=== PATIENT | female | born 1960 | race Caucasian/White ===

== ENCOUNTER → 2016-03-14 | Outpatient (REF) | payer OTHER | LOC: M LAB REF 16:27 | PROVIDERS: ATTEND Nurse Practitioner Adult Health | DX: R50.9 Fever, unspecified (principal) ==

== ENCOUNTER 2016-06-02 13:04 | Emergency (ER) | payer OTHER ==
[~2016-06-02] VITALS: Ht 172.7 cm; Wt 90.7 kg
[2016-06-02] MEDS ORDERED: HYDR12.55 (13:13)
[2016-06-02] MEDS ORDERED: CITA20TA4 (13:13)
[2016-06-02] MEDS ORDERED: ALBU83IN (13:13)
[2016-06-02] MEDS ORDERED: VITA50003 (13:13)
[2016-06-02] MEDS ORDERED: IBUP600T26 PO (13:13)
[2016-06-02] MEDS ORDERED: LISI-542 (13:13)
[2016-06-02] MEDS ORDERED: TYLE325T5 PO (13:13)
[2016-06-02] MEDS ORDERED: KETOROLAC 30 MG/ML VIAL (J1885) IV ONE (15:30)
[2016-06-02] MEDS ORDERED: NS 1,000 ML IV ONE (15:30)
[2016-06-02 16:12] LABS: ANION GAP 7 MEQ/L (8-16); BLOOD UREA NITROGEN 18 MG/DL (7-18); CALCIUM LEVEL 9.3 MG/DL (8.5-10.1); CARBON DIOXIDE LEVEL 28 MEQ/L (21-32); CHLORIDE LEVEL 104 MEQ/L (98-107); CREATININE FOR GFR 0.57 MG/DL (0.55-1.02); GLOMERULAR FILTRATION RATE > 60.0 (>51); GLUCOSE, FASTING 93 MG/DL (70-105); POTASSIUM SERUM 3.8 MEQ/L (3.5-5.1); SODIUM LEVEL 139 MEQ/L (136-145)
[2016-06-02 16:29] LABS: MEAN CORPUSCULAR HEMOGLOBIN 30.8 pg (27.0-33.0); MEAN CORPUSCULAR HGB CONC 34.4 g/dl (32.0-36.5); MEAN CORPUSCULAR VOLUME 89.5 fl (80.0-96.0); PLATELET COUNT, AUTOMATED 194 k/mm3 (150-450); RED CELL DISTRIBUTION WIDTH 12.6 % (11.5-14.5); WHITE BLOOD COUNT 8.1 K/mm3 (4.0-10.0)
[2016-06-02 16:49] LABS: BASOPHILS 2 % (0-4); EOSINOPHILS 2 % (0-5)
--- NOTE | 2016-06-02 18:20 | REPUSA ---
CLINICAL HISTORY: Abdominal pain. TECHNIQUE: Multiple axial, sagittal and coronal CT images were obtained through the abdomen and pelvi s without administration of oral or IV contrast material. COMMENTS: The liver is of uniform decreased attenuation without mass or defect compatible fatty infiltration. T here is no intra or extrahepatic biliary ductal dilatation. The spleen is normal. The gallbladder is within normal limits. The pancreas is of normal contour and attenuation characteristics. There is no evidence of adrenal mass. The kidneys are normal in size, shape and configuration. 2 nonobstructing calculi are noted in the l ower pole of the right kidney largest measures 5 mm. Nonobstructing calculi noted in the lower pole of left kidney, largest measures 5 mm. There is no hydroureter or hydronephrosis. There is no evidence for appendicitis. There is no bowel wall thickening. No evidence for small or la rge bowel obstruction. There is no evidence of abdominal ascites or lymphadenopathy. There is no evidence of intrinsic or extrinsic bladder mass. There is no pelvic ascites or lymphadeno romulo. The uterus and ovaries are unremarkable. Images of the lung bases show no evidence of pleural or parenchymal mass. There are no pleural effusi ons. The bony structures are free of lytic or blastic lesions. Multilevel degenerative changes are seen in volving the thoracolumbar spine. Scattered calcifications are seen involving the aorta and major branches compatible with atherosclero sis. IMPRESSION: Bilateral nonobstructing renal calculi. Fatty liver. No acute abdominal pelvic pathology. Thank you for your kind referral of this patient.
[2016-06-02] MEDS ORDERED: ROBA500T PO (18:54)
[2016-06-02] MEDS ORDERED: NAPR500T2 PO (18:54)
[2016-06-02 18:57] VITALS: BP 148/69
== END 2016-06-02 19:02 | disposition home or self-care (01) ==
LOC: M ED 15:09
DX: M54.5 Low back pain (principal); K76.0 Fatty (change of) liver, not elsewhere classified; E83.59 Other disorders of calcium metabolism; N29 Other disorders of kidney and ureter in diseases classified elsewhere; Z88.1 Allergy status to other antibiotic agents; Z88.0 Allergy status to penicillin; Z79.899 Other long term (current) drug therapy; Z87.442 Personal history of urinary calculi
CPT/HCPCS: 74176; 80048; 81001; 85025; 87086; 96374; 99282; J1885

== ENCOUNTER 2018-03-21 02:20 | Emergency (ER) | payer OTHER ==
[~2018-03-21] VITALS: Ht 175.3 cm; Wt 86.4 kg
[~2018-03-21 02:20] MED LIST: ALBU83IN; CITA20TA4; HYDR12.55; IBUP-1022 PO; LISI-542; NAPR-885 PO; ROBA500T PO; TYLE325T5 PO; VITA50005
[2018-03-21 02:52] LABS: BASO # 0.1 10^3/uL (0.0-0.2); BASO % 0.7 % (0.0-1.0); EOS # 0.2 10^3/uL (0.0-0.50); EOS % 1.9 % (0.0-3.0); HEMATOCRIT 43.2 % (36.0-47.0); HEMOGLOBIN 15.4 g/dl (12.0-15.5); LYMPH # 1.4 10^3/uL (1.5-4.5); LYMPH % 16.3 % (24.0-44.0); MEAN CORPUSCULAR HEMOGLOBIN 31.6 pg (27.0-33.0); MEAN CORPUSCULAR HGB CONC 35.6 g/dl (32.0-36.5); MEAN CORPUSCULAR VOLUME 88.5 fl (80.0-96.0); MONO # 0.9 10^3/uL (0.0-0.8); MONO % 9.8 % (0.0-5.0); NEUTROPHILS # 6.2 10^3/uL (1.8-7.7); PLATELET COUNT, AUTOMATED 216 10^3/uL (150-450); RED BLOOD COUNT 4.88 10^6/uL (4.00-5.40); WHITE BLOOD COUNT 8.8 10^3/uL (4.0-10.0)
[2018-03-21] MEDS ORDERED: NS 1,000 ML IV ONE (03:00)
[2018-03-21] MEDS ORDERED: KETOROLAC 30 MG/ML VIAL (J1885) IV ONE (03:00)
[2018-03-21] MEDS ORDERED: ONDANSETRON 4MG/2ML VIAL (J2405) IV ONE (03:00)
[2018-03-21 03:23] LABS: ALT/SGPT 23 U/L (12-78); BILIRUBIN,DIRECT 0.1 MG/DL (0.0-0.2); BILIRUBIN,TOTAL 0.4 MG/DL (0.2-1.0); BLOOD UREA NITROGEN 26 MG/DL (7-18); CALCIUM LEVEL 8.9 MG/DL (8.5-10.1); CARBON DIOXIDE LEVEL 26 MEQ/L (21-32); CHLORIDE LEVEL 104 MEQ/L (98-107); CREATININE FOR GFR 0.63 MG/DL (0.55-1.30); GLOMERULAR FILTRATION RATE > 60.0 (>51); GLUCOSE, FASTING 126 MG/DL (70-100); LIPASE 123 U/L (73-393); POTASSIUM SERUM 4.1 MEQ/L (3.5-5.1); SODIUM LEVEL 140 MEQ/L (136-145); TOTAL PROTEIN 6.7 GM/DL (6.4-8.2)
--- NOTE | 2018-03-21 04:04 | REPVR ---
EXAM: CT Abdomen and Pelvis Without Contrast EXAM DATE/TIME: 03/21/2018 2:55 AM CLINICAL HISTORY: 57 years old, female; Pain; Abdominal pain; Flank; Left; Additional info: L flank pain TECHNIQUE: Axial computed tomography images of the abdomen and pelvis without contrast. All CT scans at this facility use at least one of these dose optimization techniques: automated exposure control; mA and/or kV adjustment per patient size (includes targeted exams where dose is matched to clinical indication); or iterative reconstruction. Coronal and sagittal reformatted images were created and reviewed. COMPARISON: CT ABD PELVIS W/O CONTRAST 06/02/2016 5:10 PM FINDINGS: Lower thorax: Small 4 mm nodule in the lateral right costophrenic sulcus which is unchanged from the prior study. ABDOMEN: Liver: Low attenuation focus in the hepatic tip measuring 15 mm which is new since the prior study. Gallbladder and bile ducts: Normal. No calcified stones. No ductal dilation. Pancreas: Normal. No ductal dilation. Spleen: Normal. No splenomegaly. Adrenals: Normal. No mass. Kidneys and ureters: Nonobstructing bilateral renal calculi. Mild left perinephric induration and mild left hydronephrosis which extends to a large left UPJ calculus which measures 10 x 5 x 9 cm. There is minimal left hydroureter and periureteral edema which extends to the left UVJ. Stomach and bowel: Mild stool throughout much of the colon. Slight wall thickening of the left colon from the splenic flexure to the rectum. Appendix: No evidence of appendicitis. PELVIS: Bladder: Unremarkable as visualized. Reproductive: Unremarkable as visualized. ABDOMEN and PELVIS: Intraperitoneal space: Normal. No free air. No significant fluid collection. Bones/joints: Bilateral spondylolysis at L5 mild anterior listhesis. Slight anterior wedge configuration of L1 which is unchanged from prior study. Soft tissues: Unremarkable. Vasculature: Normal. No abdominal aortic aneurysm. Lymph nodes: Normal. No enlarged lymph nodes. IMPRESSION: 1. Left UPJ calculus measuring 10 x 5 x 9 mm with moderate secondary obstructive uropathy. There is additional minimal left hydroureter with periureteral edema which extends to the left UVJ. No distal calculus is noted. A recently passed stone is not excluded. 2. Nonobstructing bilateral renal calculi. 3. 4 mm nodule in the lateral right costophrenic sulcus which is unchanged from 06/02/2016. No followup is needed. 4. Bilateral spondylolysis of L5 with mild anterolisthesis. 5. Low attenuation area in the hepatic tip measuring 15 mm which is new since the prior study. Followup is suggested. 6. Question of minimal nonspecific distal or left colitis. Electronically signed by: Marcos Mascorro On 03/21/2018 04:04:10 AM
[2018-03-21] MEDS ORDERED: PERC5TAB12 PO (06:19)
[2018-03-21] MEDS ORDERED: FLOM0.4C39 PO (06:20)
[2018-03-21 06:26] VITALS: BP 136/70
--- NOTE | 2018-03-23 11:57 | ED PDOC ---
Post-Departure Follow-Up [facility] faxed formal report of ct abd/p for fu Zhanna Dia MD Mar 23, 2018 11:57
== END 2018-03-21 06:40 | disposition home or self-care (01) ==
LOC: M ED 02:20
DX: N20.1 Calculus of ureter (principal); N13.4 Hydroureter; Z87.442 Personal history of urinary calculi; Z87.42 Personal history of other diseases of the female genital tract; Z98.890 Other specified postprocedural states; Z88.0 Allergy status to penicillin; Z88.8 Allergy status to other drugs, medicaments and biological substances
CPT/HCPCS: 74176; 80048; 80076; 81001; 83690; 85025; 93041; 96374; 96375; 99285; J1885; J2405

== ENCOUNTER → 2018-06-22 | Outpatient (CLI) | payer OTHER ==
[~2018-06-22] MED LIST changes: -CITA20TA4; +CITA20TA6; +FLOM0.4C39 PO; +PERC5TAB12 PO
--- NOTE | 2018-06-22 14:49 | REP ---
Unilateral left ribs PA chest and views History: Contusion The lungs are clear. The heart is normal in size. The pulmonary vasculature is normal in appearance. The bony structure is intact. Impression: No acute disease. Electronically Signed by Saman Edwards MD 06/22/2018 02:40 P
== END ==
LOC: M WUC 14:17
PROVIDERS: ATTEND Physician Assistant
DX: S20.212A Contusion of left front wall of thorax, initial encounter (principal); X58.XXXA Exposure to other specified factors, initial encounter; Y92.9 Unspecified place or not applicable

== ENCOUNTER 2018-09-06 17:11 | Day surgery (SDC) | payer OTHER ==
[~2018-09-06] VITALS: Ht 172.7 cm; Wt 84.1 kg
[~2018-09-06 17:11] MED LIST changes: -ALBU83IN; +ALBU83IN INH; -CITA20TA6; +CITA20TA6 PO; -HYDR12.55; +HYDR12.55 PO; -LISI-542; +LISI-542 PO; -VITA50005; +VITA50005 PO
[2018-09-06] MEDS ORDERED: KETOROLAC 30 MG/ML VIAL (J1885) IV ONE (18:00)
[2018-09-06] MEDS ORDERED: ONDANSETRON 4MG/2ML VIAL (J2405) IV ONE (18:00)
[2018-09-06] MEDS ORDERED: NS 1,000 ML IV ONE (18:00)
[2018-09-06 18:50] LABS: BASO # 0.1 10^3/uL (0.0-0.2); BASO % 0.4 % (0.0-1.0); EOS % 0.2 % (0.0-3.0); HEMATOCRIT 45.1 % (36.0-47.0); HEMOGLOBIN 15.7 g/dl (12.0-15.5); LYMPH # 0.9 10^3/uL (1.5-4.5); LYMPH % 5.6 % (24.0-44.0); MEAN CORPUSCULAR HEMOGLOBIN 30.6 pg (27.0-33.0); MEAN CORPUSCULAR HGB CONC 34.8 g/dl (32.0-36.5); MEAN CORPUSCULAR VOLUME 87.9 fl (80.0-96.0); MONO # 1.2 10^3/uL (0.0-0.8); NEUTROPHILS # 14.4 10^3/uL (1.8-7.7); NEUTROPHILS % 86.3 % (36.0-66.0); PLATELET COUNT, AUTOMATED 216 10^3/uL (150-450); RED BLOOD COUNT 5.13 10^6/uL (4.00-5.40); WHITE BLOOD COUNT 16.7 10^3/uL (4.0-10.0)
[2018-09-06 19:26] LABS: ALBUMIN 4.4 GM/DL (3.2-5.2); BILIRUBIN,DIRECT 0.2 MG/DL (0.0-0.2); BILIRUBIN,TOTAL 0.6 MG/DL (0.2-1.0); TOTAL PROTEIN 7.3 GM/DL (6.4-8.2)
--- NOTE | 2018-09-06 19:27 | REPVR ---
EXAM: CT Abdomen and Pelvis Without Contrast EXAM DATE/TIME: 09/06/2018 6:05 PM CLINICAL HISTORY: 57 years old, female; Abdominal pain; Flank; Left; Additional info: L flank pain TECHNIQUE: Imaging protocol: Axial computed tomography images of the abdomen and pelvis without contrast. Coronal and sagittal reformatted images were created and reviewed. Radiation optimization: All CT scans at this facility use at least one of these dose optimization techniques: automated exposure control; mA and/or kV adjustment per patient size (includes targeted exams where dose is matched to clinical indication); or iterative reconstruction. COMPARISON: CT ABD PELVIS W/O CONTRAST 03/21/2018 2:59 AM FINDINGS: Lungs: 5 mm pulmonary nodule within the right lateral costophrenic angle, unchanged since a prior CT scan performed on 06/02/2016. No additional follow up is recommended. Liver: Unremarkable. No mass. Gallbladder and bile ducts: Normal. No calcified stones. No ductal dilation. Pancreas: Unremarkable. No ductal dilation. Spleen: Unremarkable. No splenomegaly. Adrenals: Normal. No mass. Kidneys and ureters: Nonobstructing stones measuring 6 mm and 5 mm within the right kidney lower pole. Normal right ureter. Multiple nonobstructing stones measuring approximately 5 mm each within the left kidney midpole and lower pole. There is a stone measuring 9 mm at the left ureteropelvic junction resulting in moderate left pelvocaliectasis. There is swelling of the left kidney and stranding of the left perinephric fat. Stomach and bowel: Unremarkable. No obstruction. No mucosal thickening. Appendix: No evidence of appendicitis. Intraperitoneal space: No free air. No significant fluid collection. Vasculature: Unremarkable. No abdominal aortic aneurysm. Lymph nodes: No enlarged lymph nodes. Bladder: Unremarkable as visualized. Reproductive: Unremarkable as visualized. Bones/joints: Bilateral L5 chronic pars defects with grade 1 anterolisthesis of L5. Degenerative disc disease and facet arthrosis at L5-S1. Old mild anterior wedge fracture deformity of the superior endplate of L1. No acute fracture. Soft tissues: Unremarkable. IMPRESSION: 1. Bilateral nephrolithiasis. 2. 9 mm diameter stone at the left ureteropelvic junction, resulting in obstructive uropathy. Electronically signed by: Henri Muir On 09/06/2018 19:27:12 PM
[2018-09-06] MEDS ORDERED: ACET1TAB55 PO (20:17)
[2018-09-07] MEDS ORDERED: BACTRIM 160MG/800MG DS TAB PO SCH (09:00)
[2018-09-07] MEDS ORDERED: CONRAY-60 60% 50ML VIAL (Q9961) As Ordered ONE (10:53)
[2018-09-07] MEDS ORDERED: LIDOCAINE 2% INJ 100 MG/5 ML SDV (FOR ANES.) As Ordered ONE (11:04)
[2018-09-07] MEDS ORDERED: PROPOFOL 200 MG/20 ML VIAL As Ordered ONE ×2 (11:04→11:45)
[2018-09-07] MEDS ORDERED: dexameTHASONE 4 MG/ML 1ML VIAL (J1100) As Ordered ONE (11:04)
[2018-09-07] MEDS ORDERED: MIDAZOLAM INJ 2 MG/2 ML VIAL (J2250) As Ordered ONE (11:04)
[2018-09-07] MEDS ORDERED: fentaNYL 100 MCG/2 ML INJECTION (J3010) As Ordered ONE (11:04)
[2018-09-07] MEDS ORDERED: ONDANSETRON 4MG/2ML VIAL (J2405) As Ordered ONE (11:04)
[2018-09-07] MEDS ORDERED: KETOROLAC 60 MG/2 ML VIAL (J1885) As Ordered ONE (11:04)
[2018-09-07] MEDS ORDERED: ePHEDrine SULFATE 25 MG/5 ML(5MG/ML) SYRINGE As Ordered ONE (11:53)
--- NOTE | 2018-09-07 12:16 | REP ---
Retrograde pyelogram: Four views. History: Ureteral stent placement. 0.09 minutes of fluoroscopy time is reported. Findings: A sequence of four last image hold fluoroscopically obtained spot radiographs of the left abdomen document left ureteral cannulation, contrast injection, proximal ureteral filling defect consistent with stone, hydronephrosis, and double pigtail ureteral stent placement. Electronically Signed by Oj Garcia MD 09/07/2018 12:08 P
--- NOTE | 2018-09-07 12:21 | ROOPDOC ---
[facility] Report Of Operation Report of Operation DATE OF PROCEDURE: 09/07/18 PREPROCEDURE DIAGNOSES: Left ureteral stone, left renal colic, possible urinary tract infection. POSTPROCEDURE DIAGNOSES: Left ureteral stone, left renal colic, possible urinary tract infection. PROCEDURE: Cystoscopy, left retrograde pyelogram, left ureteral stent placement. SURGEON: Joe Landa MD METALLURGIST PROCESS: overhead door technician ANESTHESIA: Gen. anesthesia. ESTIMATED BLOOD LOSS: Approximately 1 mL. COMPLICATIONS: None. REMARKS: Retrograde pyelogram consistent with preoperative CT scan showing 1 cm stone at left ureteropelvic junction. PROCEDURE NOTE: This patient is a 57-year-old female who first presented to [facility] back in February 2018 with left flank pain. CT scan done at that time demonstrated an approximately 1 cm stone at her left ureteropelvic junction in addition to numerous nonobstructing bilateral renal stones. She was discharged from the emergency department at that time as she was minimally symptomatic. She reports that she had no significant pain until the last couple days when she started having similar left flank pain again. She again presented to [facility] emergency department where CT scan showed similar findings. She was also noted to have a urinalysis demonstrating possible urinary tract infection. As this was her second presentation for the same stone and the stone was proximal and large enough that it seemed unlikely to pass, in addition to the fact that she had a possible urinary tract infection, a decision was made to proceed to stent placement. The patient was counseled on her disease process as well as all the various treatment options going forward, including the risks benefits and alternatives of each option. She agreed to the above listed procedures. DESCRIPTION OF PROCEDURE: After full written consent was obtained in the preoperative holding area the patient was brought back to the operating room. Gen. anesthesia was initiated after which she was placed into the dorsal lithotomy position. She was prepped and draped in the usual sterile manner. A manager of financial film was taken using the fluoroscopy system. A 21 [place] rigid cystoscope was then placed through the urethra and into the bladder. Urine was collected through the cystoscope sheath and sent out for urinalysis and culture. Baptiste cystoscopy did not demonstrate any abnormalities. Bilateral ureteral orifices were visualized and orthotopic position. A 5 [place] Pollack catheter was then advanced through the cystoscope and used to intubate the left ureteral orifice. Contrast was then injected through the catheter, up the left ureter, and into the left kidney during which time fluoroscopic images were taken. The resulting retrograde pyelogram demonstrated the left ureter was generally of normal course and caliber. There appeared to be a somewhat large filling defect at the ureteropelvic junction. There was some mild hydronephrosis. A sensor wire was then advanced through the catheter and up into the left kidney without any difficulty. The Pollack catheter was backed off the wire leaving the wire place. A 6 [place] multilength double-J ureteral stent was then advanced over the wire through the cystoscope and up into the left kidney under fluoroscopic guidance. Once the stent appeared to be in good position the wire was removed. The stent appeared to curl in good position with the proximal curl in the left kidney and the distal curl in the bladder. The bladder was then emptied through the cystoscope sheath and the procedure was ended. The patient was placed back into the supine position prior to discontinuation of general anesthesia. PLAN: The patient will likely be discharged home from the PACU once she demonstrates that she is hemodynamically stable and meets all criteria for discharge. She will be given prescriptions for oxybutynin, tamsulosin to be taken as needed for stent irritation. She will also be given prescription for Bactrim double strength tablets to be taken twice a day for 1 week. Arrangements will be made for her to follow up at the [facility] urology clinic in the next 1- 2 weeks. She will need to be scheduled for left ureteroscopy with laser lithotripsy. JOE LANDA MD Sep 07, 2018 12:21
[2018-09-07] MEDS ORDERED: fentaNYL 100 MCG/2 ML INJECTION (J3010) IV PRN (12:30)
[2018-09-07] MEDS ORDERED: LR 1,000 ML IV SCH (12:30)
[2018-09-07] MEDS ORDERED: ONDANSETRON 4MG/2ML VIAL (J2405) IV PRN (12:30)
[2018-09-07] MEDS ORDERED: PERCOCET 5MG/325MG TAB PO PRN (12:30)
[2018-09-07 12:40] VITALS: BP 171/81
[2018-09-07 13:00] VITALS: BP 135/81
[2018-09-07] MEDS ORDERED: oxyBUTYnin 5 MG TAB PO PRN (13:00)
[2018-09-07] MEDS ORDERED: TAMSULOSIN 0.4 MG CAP PO PRN (13:00)
[2018-09-07] MEDS ORDERED: OXYB5TAB10 PO (13:12)
[2018-09-07] MEDS ORDERED: FLOM0.4C39 PO (13:12)
[2018-09-07] MEDS ORDERED: BACT800T5 PO (13:12)
== END 2018-09-07 13:42 | disposition home or self-care (01) ==
LOC: M ED 17:11 → UNDOADMIN 20:02 → M SDC 20:02 → M ED INP 20:02 → UNDOADMIN 09-07 10:39 → M ED INP 09-07 10:39 → M MSPAV 09-07 12:33 → UNDODISIN 09-07 13:42 → M SDC 09-07 13:42
PROVIDERS: ATTEND Urology Pediatric Urology
DX: N13.2 Hydronephrosis with renal and ureteral calculous obstruction (principal); K21.9 Gastro-esophageal reflux disease without esophagitis; I10 Essential (primary) hypertension; K58.9 Irritable bowel syndrome, unspecified; K57.90 Diverticulosis of intestine, part unspecified, without perforation or abscess without bleeding; J45.909 Unspecified asthma, uncomplicated; Z88.0 Allergy status to penicillin; Z88.1 Allergy status to other antibiotic agents; Z88.8 Allergy status to other drugs, medicaments and biological substances; Z79.899 Other long term (current) drug therapy
CPT/HCPCS: 52332; 74176; 76000; 80047; 80076; 81001; 85025; 87086; 96374; 96375; 99291; C1769; C2617; J1100; J1885; J2250; J2405; J3010; Q9961

== ENCOUNTER 2018-09-23 11:45 | Day surgery (SDC) | payer OTHER ==
[~2018-09-23] VITALS: Ht 172.7 cm; Wt 87.9 kg
[~2018-09-23 11:45] MED LIST changes: +ACET1TAB55 PO; +BACT800T5 PO; +LR 1,000 ML IV ONE; +OXYB5TAB10 PO
[2018-09-23] MEDS ORDERED: fentaNYL 100 MCG/2 ML INJECTION (J3010) As Ordered ONE (12:13)
[2018-09-23] MEDS ORDERED: MIDAZOLAM INJ 2 MG/2 ML VIAL (J2250) As Ordered ONE (12:13)
[2018-09-23] MEDS ORDERED: LIDOCAINE 2% INJ 100 MG/5 ML SDV (FOR ANES.) As Ordered ONE (12:13)
[2018-09-23] MEDS ORDERED: PROPOFOL 200 MG/20 ML VIAL As Ordered ONE (12:13)
[2018-09-23] MEDS ORDERED: CONRAY-60 60% 50ML VIAL (Q9961) As Ordered ONE (13:12)
[2018-09-23] MEDS ORDERED: dexameTHASONE 4 MG/ML 1ML VIAL (J1100) As Ordered ONE (13:23)
[2018-09-23] MEDS ORDERED: KETOROLAC 60 MG/2 ML VIAL (J1885) As Ordered ONE (13:38)
[2018-09-23] MEDS ORDERED: ONDANSETRON 4MG/2ML VIAL (J2405) As Ordered ONE (13:46)
[2018-09-23] MEDS ORDERED: oxyBUTYnin 5 MG TAB PO PRN (15:00)
[2018-09-23] MEDS ORDERED: ONDANSETRON 4MG/2ML VIAL (J2405) IV PRN (15:00)
[2018-09-23] MEDS ORDERED: LR 1,000 ML IV SCH (15:00)
[2018-09-23] MEDS ORDERED: PERCOCET 5MG/325MG TAB PO PRN (15:00)
[2018-09-23] MEDS ORDERED: fentaNYL 100 MCG/2 ML INJECTION (J3010) IV PRN (15:00)
[2018-09-23] MEDS ORDERED: METOCLOPRAMIDE INJ 10MG/2ML VIAL (J2765) IV PRN (15:00)
--- NOTE | 2018-09-23 15:13 | REP ---
RETROGRADE PYELOGRAM: TWO VIEWS. HISTORY: Cystoscopy. Left ureteroscopy with laser. FINDINGS: A sequence of two last image hold fluoroscopically obtained intraprocedural spot radiographs of the abdomen document ureteral stent placement and contrast injection. 23 seconds of fluoroscopy time is reported. There are no visible laterality markers. Electronically Signed by Oj Garcia MD 09/23/2018 03:39 P
[2018-09-23] MEDS: PERCOCET 5MG/325MG TAB PO PRN ×2 (15:20→15:50)
[2018-09-23 15:35] VITALS: BP 157/74
--- NOTE | 2018-09-23 23:18 | RO ---
DATE OF PROCEDURE: 09/23/2018 PREPROCEDURE DIAGNOSIS: Left kidney and ureteral stones. POSTPROCEDURE DIAGNOSIS: Left kidney and ureteral stones. PROCEDURE: Cystoscopy, left ureteroscopy with laser lithotripsy and basket extraction of stones, left retrograde pyelogram with intraoperative interpretation of images, left ureteral stent exchange. SURGEON: Kevin Young MD CARBON GRINDER: None. ANESTHESIA: General. OPERATIVE INDICATIONS: This is a 57-year-old female found to have an obstructing 9 mm proximal left ureteral stone a few weeks ago. She had a stent placed at that time. She is brought to the operating room today for treatment of her stone in the ureter as well as stones in the kidney. DESCRIPTION OF PROCEDURE: The patient was brought to the operating room and general anesthesia was induced. Prophylactic antibiotics were infused. She was then placed in the dorsal lithotomy position and prepped and draped in the usual sterile fashion. A rigid cystoscope was then inserted into the urethral meatus and advanced into the bladder. The guidewire was then advanced up the left collecting system along side the previously placed stent. The left ureteral stent was then removed intact. I then advanced the ureteral access sheath over the wire into the left collecting system. I then went up the access sheath with a flexible ureteroscope and there was an approximately 9 mm stone seen. The stone was of note impacted. At this point, I utilized a 272 Micron laser fiber to fragment the stone into several pieces. This took a little while as the stone was stuck to the wall. I was ultimately able to fragment the entire stone and remove all the pieces. Of note, the proximal ureter did appear to be scarred from the impacted stone. At this point, I went into the kidney. The kidney was very dilated. I examined all the calices and within a lower pole brown, a few small stones were seen. These stones were removed in a basket. After that no additional stones were seen. A retrograde pyelogram was performed notable for moderate to severe left hydronephrosis and no extravasation. At this point, I then withdrew the ureteroscope along with the access sheath and no additional stones were seen within the ureter. I then utilized the wire to advance a #7-Sami x 22-32 cm JJ ureteral stent up to the left collecting system. The wire was removed and there were adequate curls of the stent in the left renal pelvis and in the bladder. The bladder was then emptied of all fluids and this marked the conclusion of the procedure. The patient was then taken out of the dorsal lithotomy position, awakened from anesthesia and transported to the recovery room in stable condition. ESTIMATED BLOOD LOSS: 5 mL COMPLICATIONS: None. SPECIMENS: Kidney stone fragments. PLAN: I will leave the patient's stent in for approximately 4 weeks given the risk of stricture formation. After the stent is removed I will get a followup renal ultrasound about 6 weeks later to check for hydronephrosis. FELICIA
== END 2018-09-23 16:20 | disposition home or self-care (01) ==
LOC: M SDC 11:45
PROVIDERS: ATTEND Urology
DX: N20.0 Calculus of kidney (principal); N20.1 Calculus of ureter; I10 Essential (primary) hypertension; K58.8 Other irritable bowel syndrome; J45.909 Unspecified asthma, uncomplicated; G47.30 Sleep apnea, unspecified; L40.8 Other psoriasis; Z79.899 Other long term (current) drug therapy; Z88.0 Allergy status to penicillin; Z79.51 Long term (current) use of inhaled steroids
CPT/HCPCS: 52356; 74420; 82360; 88300; C1769; C1894; C2617; J0690; J1100; J1885; J2250; J2405; J3010; Q9961

== ENCOUNTER → 2018-12-23 | Outpatient (CLI) | payer OTHER ==
[~2018-12-23] MED LIST changes: -LR 1,000 ML IV ONE
--- NOTE | 2018-12-23 18:08 | REP ---
Clinical: Ureteral stricture. Technique: Real time waite scale ultrasound examination using curved array transducer. Findings: Bilateral kidneys are normal in contour, size, echogenicity, and reniform shape without hydronephrosis, nephrolithiasis, cystic or renal mass lesion. No perinephric fluid collection. Right kidney measures 11.2 x 5.5 x 5.3 cm. Left kidney measures 10.8 x 5.1 x 6.7 cm. Limited evaluation of the bladder is unremarkable. Impression: Unremarkable renal ultrasound. No hydronephrosis. Electronically Signed by David Chang MD 12/23/2018 05:59 P
== END ==
LOC: M RAD 17:10
PROVIDERS: ATTEND Urology
DX: N13.5 Crossing vessel and stricture of ureter without hydronephrosis (principal)

== ENCOUNTER 2019-02-21 14:22 | Emergency (ER) | payer OTHER ==
[~2019-02-21] VITALS: Ht 175.3 cm; Wt 90.9 kg
[2019-02-21 14:50] LABS: BASO # 0.1 10^3/uL (0.0-0.2); BASO % 0.5 % (0.0-1.0); EOS # 0.2 10^3/uL (0.0-0.5); EOS % 1.9 % (0.0-3.0); HEMATOCRIT 46.6 % (36.0-47.0); HEMOGLOBIN 15.8 g/dl (12.0-15.5); LYMPH # 1.5 10^3/uL (1.5-5.0); LYMPH % 12.2 % (24.0-44.0); MEAN CORPUSCULAR HGB CONC 33.9 g/dl (32.0-36.5); MEAN CORPUSCULAR VOLUME 91.4 fl (80.0-96.0); MONO # 0.9 10^3/uL (0.0-0.8); MONO % 7.6 % (0.0-5.0); NEUTROPHILS # 9.2 10^3/uL (1.5-8.5); NEUTROPHILS % 77.4 % (36.0-66.0); PLATELET COUNT, AUTOMATED 213 10^3/uL (150-450); WHITE BLOOD COUNT 11.9 10^3/uL (4.0-10.0)
--- NOTE | 2019-02-21 14:55 | REP ---
Clinical: Acute chest pain . Comparison: 09/18/2018 . Findings: The mediastinum and cardiac silhouette are stable and within normal limits for portable technique. The lung adhikari are clear without acute consolidation, effusion, or pneumothorax. Skeletal structures are intact. Impression: No acute cardiopulmonary process appreciated. Electronically Signed by David Chang MD 02/21/2019 02:47 P
[2019-02-21 15:02] LABS: INR 0.98; PROTHROMBIN TIME 12.7 SECONDS (11.8-14.0)
[2019-02-21 15:23] LABS: ALT/SGPT 27 U/L (12-78); BILIRUBIN,DIRECT < 0.1 MG/DL (0.0-0.2); BILIRUBIN,TOTAL 0.5 MG/DL (0.2-1.0); BLOOD UREA NITROGEN 15 MG/DL (7-18); CALCIUM LEVEL 9.4 MG/DL (8.5-10.1); CARBON DIOXIDE LEVEL 29 MEQ/L (21-32); CHLORIDE LEVEL 103 MEQ/L (98-107); CK-MB VALUE MASS 1.4 NG/ML (<3.6); CPK CREATINE PHOSPHOKINASE 125 U/L (26-192); CREATININE FOR GFR 0.62 MG/DL (0.55-1.30); GLOMERULAR FILTRATION RATE > 60.0 (>51); GLUCOSE, FASTING 97 MG/DL (70-100); LIPASE 80 U/L (73-393); MB/CK RELATIVE INDEX 1.12 (< OR =4); POTASSIUM SERUM 4.8 MEQ/L (3.5-5.1); SODIUM LEVEL 138 MEQ/L (136-145); TOTAL PROTEIN 7.1 GM/DL (6.4-8.2); TROPONIN I < 0.02 NG/ML (< 0.10)
[2019-02-21 16:39] LABS: INFLUENZA A AMPLIFICATION NEGATIVE (NEGATIVE); INFLUENZA B AMPLIFICATION NEGATIVE (NEGATIVE)
[2019-02-21 17:15] VITALS: BP 121/66
--- NOTE | 2019-02-22 15:32 | ECGEPIP ---
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
== END 2019-02-21 17:33 | disposition home or self-care (01) ==
LOC: M ED 14:22
DX: J00 Acute nasopharyngitis [common cold] (principal); I10 Essential (primary) hypertension; J45.909 Unspecified asthma, uncomplicated; Z79.899 Other long term (current) drug therapy; Z88.0 Allergy status to penicillin; Z88.1 Allergy status to other antibiotic agents; Z88.8 Allergy status to other drugs, medicaments and biological substances

== ENCOUNTER → 2019-08-16 | Outpatient (CLI) | payer OTHER ==
--- NOTE | 2019-08-20 13:32 | SLEEPCENT ---
DATE OF STUDY: 08/16/2019 ORDERED BY: Leonardo Townsend DO Nocturnal polysomnography was performed for evaluation of sleep physiology in this patient with a prior history of obstructive sleep apnea syndrome. 7 hours and 15 minutes of data were reviewed. There were 253.5 minutes of sleep identified. Sleep latency was prolonged at 49.5 minutes. Rapid eye movement (REM) latency was prolonged at 281 minutes. Sleep architecture showed fragmentation and poor progression with one REM cycle noted. Overall sleep efficiency was 59%. The electrocardiogram showed a sinus rhythm with frequent premature ventricular contractions (PVCs). Average heart rate 68 beats per minute. Rate ranged 50-85. Electroencephalogram (EEG) showed fairly normal waveforms for awake and sleep. There were 117 respiratory events identified of 10 seconds in duration or greater for an apnea-hypopnea index of 41.9. The events were primarily obstructive, not exclusive to sleep stage nor body posture. Arousals related to respiratory events occurred 14.2 times per hour, and oxygen desaturations were seen into the 80s with some limb activity. Limb movement arousal index was 5.9. IMPRESSION: Severe obstructive sleep apnea syndrome (G47.33). Apnea-hypopnea index 41.9. RECOMMENDATION: The patient should be encouraged to return to the sleep disorder center for pressure therapy. In the interim, alcohol and sedative avoidance should be practiced and caution exercised during the operation of motor vehicles.
== END ==
LOC: M SLEEP 20:00
PROVIDERS: ATTEND Internal Medicine Pulmonary Disease
DX: G47.33 Obstructive sleep apnea (adult) (pediatric) (principal)

== ENCOUNTER → 2019-09-10 | Outpatient (CLI) | payer OTHER ==
[~2019-09-10] MED LIST changes: +ALPR0.25 PO; +OMEP-218 PO; +TAMS1CAP17; +VITA50005
--- NOTE | 2019-11-06 13:53 | SLEEPCENT ---
DATE: 09/10/2019 ORDERED BY: Leonardo Townsend M.D. Nocturnal polysomnography was performed for the titration of pressure therapy in this patient with obstructive sleep apnea syndrome. For testing, a [employer] Environment View full-face mask of small size, 4 cm of water pressure applied to the circuit, and the lights were extinguished. There was 7 hours and 37 minutes of data reviewed. There was 396.5 minutes of sleep identified. Sleep latency was mildly prolonged at 23.5 minutes. REM latency was prolonged at 140.5 minutes. Sleep architecture improved with optimal pressure therapy. There were two REM cycles noted. Overall sleep efficiency was 88.5%. The patients electrocardiogram showed a sinus rhythm with an average heart rate of 65 beats per minute. EEG showed normal waveforms for wake and sleep. Respiratory events were fully palliated with CPAP at a pressure of +8. IMPRESSION AND PLAN: Obstructive sleep apnea syndrome (G47.33). RECOMMENDATIONS: Nightly use of pressure therapy 8 cm of water. MTDD
== END ==
LOC: M SLEEP 20:00
PROVIDERS: ATTEND Internal Medicine Pulmonary Disease
DX: G47.33 Obstructive sleep apnea (adult) (pediatric) (principal)

== ENCOUNTER 2019-10-25 20:07 | Emergency (ER) | payer OTHER ==
[~2019-10-25] VITALS: Ht 175.3 cm; Wt 100.0 kg
[~2019-10-25 20:07] MED LIST changes: -ALPR0.25 PO; -OMEP-218 PO; -TAMS1CAP17; -VITA50005
[2019-10-25] MEDS ORDERED: ALPR0.25 PO (20:16)
[2019-10-25] MEDS ORDERED: OMEP-218 PO (20:16)
[2019-10-25 20:46] LABS: BASO % 0.5 % (0.0-1.0); EOS # 0.1 10^3/uL (0.0-0.5); EOS % 1.5 % (0.0-3.0); HEMATOCRIT 43.7 % (36.0-47.0); HEMOGLOBIN 15.3 g/dl (12.0-15.5); LYMPH # 1.1 10^3/uL (1.5-5.0); LYMPH % 15.5 % (24.0-44.0); MEAN CORPUSCULAR HEMOGLOBIN 31.3 pg (27.0-33.0); MEAN CORPUSCULAR VOLUME 89.4 fl (80.0-96.0); MONO # 0.5 10^3/uL (0.0-0.8); NEUTROPHILS # 5.5 10^3/uL (1.5-8.5); PLATELET COUNT, AUTOMATED 219 10^3/uL (150-450); RED BLOOD COUNT 4.89 10^6/uL (4.00-5.40); WHITE BLOOD COUNT 7.3 10^3/uL (4.0-10.0)
[2019-10-25] MEDS ORDERED: NS 1,000 ML IV ONE (21:00)
[2019-10-25] MEDS ORDERED: TAMSULOSIN 0.4 MG CAP PO ONE (21:00)
[2019-10-25] MEDS ORDERED: KETOROLAC 30 MG/ML 1ML VIAL IV ONE (21:00)
[2019-10-25 21:22] LABS: ALBUMIN 4.1 GM/DL (3.2-5.2); BILIRUBIN,DIRECT 0.1 MG/DL (0.0-0.2); BILIRUBIN,TOTAL 0.4 MG/DL (0.2-1.0); TOTAL PROTEIN 7.1 GM/DL (6.4-8.2)
--- NOTE | 2019-10-25 22:08 | REPVR ---
PROCEDURE INFORMATION: Exam: CT Abdomen And Pelvis Without Contrast Exam date and time: 10/25/2019 9:25 PM Age: 58 years old Clinical indication: Abdominal pain; Flank; Right; Additional info: R flank pain, hematuria TECHNIQUE: Imaging protocol: Computed tomography of the abdomen and pelvis without contrast. Radiation optimization: All CT scans at this facility use at least one of these dose optimization techniques: automated exposure control; mA and/or kV adjustment per patient size (includes targeted exams where dose is matched to clinical indication); or iterative reconstruction. COMPARISON: CT ABD PELVIS W/O CONTRAST 09/06/2018 6:07 PM FINDINGS: Lungs: There is a 5 mm solid pulmonary nodule in the right lower lobe (image 20 of the axial series 204), which is unchanged compared to the prior CTs on 09/06/2018 and 06/02/2016 and for which further follow-up is not recommended. The lungs were not fully imaged. Heart: No cardiomegaly or pericardial effusion. Diaphragm: Intact. Liver: Unremarkable. No liver lesion is identified. The contour of the liver is smooth. No hepatomegaly is noted. Gallbladder and bile ducts: No calcified gallstones are noted. No gallbladder wall thickening, pericholecystic fluid, or pericholecystic inflammatory changes are identified. No dilation of the bile ducts is noted. No calcified stones are seen in the common bile duct. Pancreas: Unremarkable. No dilation of the main pancreatic duct is noted. There is no inflammatory fat stranding around the pancreas to suggest acute pancreatitis. Spleen: Unremarkable. No splenomegaly is noted. Incidental note is made of a small accessory spleen. Adrenals: Normal. No adrenal mass is noted. Kidneys and ureters: There is a 6 mm calculus in the right renal pelvis (image 72 of the coronal series 202). There is also a 4 mm calculus in the left distal ureter just proximal to the left ureterovesical junction (image 77 of the coronal series 202). There is a 4 mm calculus in the lower pole calyx of the right kidney. There are 1 mm, 4 mm, and 4 mm calculi in lower pole calices of the left kidney. There is no hydronephrosis or hydroureter. No renal lesion is identified. Stomach and bowel: The stomach is distended with ingested food. The small bowel is unremarkable. There is no evidence for a bowel obstruction, diverticulosis, diverticulitis, colitis, perforated viscus, pneumatosis intestinalis, intussusception, or volvulus. There is a moderate to large amount of formed stool in the cecum and ascending colon. There is a mild amount of formed stool in the transverse colon, descending colon, and rectosigmoid. Appendix: The appendix is not identified and may have been removed. No dilated blind ending tubular structure, inflammatory fat stranding, or fluid is noted in the expected location of the appendix. Intraperitoneal space: No free air. No ascites. No asbcess. Retroperitoneal space: No fluid collection. No mass. Vasculature: There is no abdominal aortic aneurysm or intramural hematoma. Lymph nodes: No enlarged lymph nodes. Bladder: The urinary bladder is decompressed, limiting its optimal evaluation. No stones are seen in the bladder. Reproductive: The uterus is anteverted. The left ovary is unremarkable. The right ovary is not identified. There is no right adnexal mass. Bones/joints: There is no acute fracture. There is a chronic mild anterior wedge compression fracture of L1 and chronic bilateral L5 pars defects, which are similar in appearance compared to the prior CTs on 09/06/2018 and 06/02/2016. There is a grade 1 anterolisthesis of L5 on S1. There are degenerative changes in the lumbar spine. The bones have a demineralized appearance. No suspicious osteolytic or osteoblastic lesion is noted. Soft tissues: There is a tiny fat containing umbilical hernia. There is nonspecific edema in the subcutaneous tissues posteriorly along the midline of the lumbar spine. IMPRESSION: 1. 6 mm calculus in the right renal pelvis. No right hydronephrosis or right hydroureter. 2. 4 mm calculus in the left distal ureter just proximal to the left ureterovesical junction. No left hydronephrosis or left hydroureter. 3. Bilateral nephrolithiasis. 4. 5 mm solid pulmonary nodule in the right lower lobe,which is unchanged compared to the prior CTs on 09/06/2018 and 06/02/2016 and for which further follow-up is not recommended. Electronically signed by: Buzz Mayes On 10/25/2019 22:07:57 PM
[2019-10-25] MEDS ORDERED: IBUP-1022 PO (22:38)
[2019-10-25] MEDS ORDERED: FLOM0.4C39 PO (22:38)
[2019-10-25 22:54] VITALS: BP 139/65
--- NOTE | 2019-10-26 15:44 | ED PDOC ---
Post-Departure Follow-Up [facility] faxed formal report of ct abbd/p forfu Zhanna Dia MD Oct 26, 2019 15:44
[2019-11-30] MEDS ORDERED: VITA50005 (12:59)
[2019-11-30] MEDS ORDERED: TAMS1CAP17 (12:59)
== END 2019-10-25 23:34 | disposition home or self-care (01) ==
LOC: M ED 20:07
DX: N20.2 Calculus of kidney with calculus of ureter (principal); R31.9 Hematuria, unspecified; I10 Essential (primary) hypertension; K21.9 Gastro-esophageal reflux disease without esophagitis; Z87.442 Personal history of urinary calculi; Z88.0 Allergy status to penicillin; Z88.1 Allergy status to other antibiotic agents; Z79.899 Other long term (current) drug therapy
CPT/HCPCS: 74176; 80047; 80076; 81001; 83690; 85025; 87086; 96361; 96374; 99284; J1885

== ENCOUNTER → 2019-11-26 | Outpatient (REF) | payer OTHER ==
[~2019-11-26] MED LIST changes: +ALPR0.25 PO; +OMEP-218 PO; +TAMS1CAP17; +VITA50005
[2019-11-26 17:37] LABS: INR 0.92; PROTHROMBIN TIME 12.5 SECONDS (12.5-14.3)
[2019-11-26 17:47] LABS: APPEARANCE, URINE CLEAR (CLEAR); BACTERIA, URINE AUTO NEGATIVE (NEGATIVE); BILIRUBIN, URINE AUTO NEGATIVE (NEGATIVE); BLOOD, URINE BLOOD NEGATIVE (NEGATIVE); COLOR, URINE YELLOW (YELLOW); GLUCOSE, URINE (UA) AUTO NEGATIVE (NEGATIVE); KETONE, URINE AUTO NEGATIVE (NEGATIVE); LEUKOCYTE ESTERASE, URINE AUTO NEGATIVE (NEGATIVE); MUCUS, URINE SMALL (NEGATIVE); NITRITE, URINE AUTO NEGATIVE (NEGATIVE); PROTEIN, URINE AUTO NEGATIVE (NEGATIVE); RBC, URINE AUTO 2 /HPF (0-3); SPECIFIC GRAVITY URINE AUTO 1.016 (1.002-1.035); SQUAMOUS EPITHELIAL CELL UR AU 0 /HPF (0-6); UROBILINOGEN, URINE AUTO 0.2 mg/dL (0.0-2.0); WBC, URINE AUTO 3 /HPF (0-3)
== END ==
LOC: M LAB REF 16:13
PROVIDERS: ATTEND Internal Medicine
DX: N20.0 Calculus of kidney (principal); Z01.818 Encounter for other preprocedural examination

== ENCOUNTER → 2019-12-02 | Outpatient (CLI) | payer OTHER | LOC: M LABSMTC 11:08 | PROVIDERS: ATTEND Anesthesiology | DX: Z01.812 Encounter for preprocedural laboratory examination (principal); Z20.828 Contact with and (suspected) exposure to other viral communicable diseases | CPT/HCPCS: C9803; U0003 ==

== ENCOUNTER 2019-12-07 07:32 | Day surgery (SDC) | payer OTHER ==
[~2019-12-07] VITALS: Ht 172.7 cm; Wt 104.6 kg
[~2019-12-07 07:32] MED LIST changes: +LIDOCAINE 1% MDV 20ML VIAL SQ PRN; +LR 1,000 ML IV ONE; +TRIMETHOPRIM/SULFAMETHOXAZOLE 160 MG in D5W 250 ML IV ONE
[2019-12-07] MEDS ORDERED: fentaNYL 100 MCG/2 ML INJECTION (J3010) As Ordered ONE (07:51)
[2019-12-07] MEDS ORDERED: propofoL 200 MG/20 ML VIAL As Ordered ONE ×2 (07:52→09:04)
[2019-12-07] MEDS ORDERED: ONDANSETRON 4MG/2ML VIAL As Ordered ONE ×2 (07:52→10:25)
[2019-12-07] MEDS ORDERED: dexameTHASONE 4 MG/ML 1ML VIAL (J1100 PER 1MG) As Ordered ONE (07:52)
[2019-12-07] MEDS ORDERED: MIDAZOLAM INJ 2MG/2ML VIAL (J2250 PER 1MG) As Ordered ONE (07:52)
[2019-12-07] MEDS ORDERED: LIDOCAINE 2% 100MG/5ML SDV (FOR ANES.) As Ordered ONE (07:52)
[2019-12-07] MEDS ORDERED: CONRAY-60 60% 50ML VIAL (Q9961) As Ordered ONE (08:25)
[2019-12-07] MEDS ORDERED: OXYB5TAB10 PO (10:16)
[2019-12-07] MEDS ORDERED: oxyCODONE 5MG TAB As Ordered ONE (10:26)
[2019-12-07] MEDS ORDERED: HYDROMORPHONE HCL 0.5 MG/ 0.5 ML SYRINGE (J1170 PER 1) As Ordered ONE (10:26)
[2019-12-07] MEDS ORDERED: oxyBUTYnin 5 MG TAB PO PRN (10:30)
[2019-12-07] MEDS: oxyCODONE 5MG TAB PO PRN ×2 (10:30→11:06)
[2019-12-07] MEDS ORDERED: ONDANSETRON 4MG/2ML VIAL IV PRN (10:30)
[2019-12-07] MEDS: HYDROMORPHONE HCL 0.5 MG/ 0.5 ML SYRINGE (J1170 PER 1) IV PRN ×2 (10:30→10:35)
[2019-12-07] MEDS ORDERED: PERCOCET 5MG/325MG TAB PO PRN (10:30)
[2019-12-07] MEDS ORDERED: LR 1,000 ML IV SCH (10:30)
[2019-12-07] MEDS: fentaNYL 100 MCG/2 ML INJECTION (J3010) IV PRN ×4 (10:45→11:03)
[2019-12-07 12:14] VITALS: BP 131/61
--- NOTE | 2019-12-08 08:10 | RO ---
DATE OF OPERATION: 12/07/2019 PREOPERATIVE DIAGNOSIS: Bilateral kidney and ureteral stones. POSTOPERATIVE DIAGNOSIS: Bilateral kidney and ureteral stones. PROCEDURES: * Cystoscopy. * Bilateral ureteroscopy with laser lithotripsy and basket extraction of stones. * Bilateral retrograde pyelograms with intraoperative interpretative images. * Bilateral ureteral stent placement. SURGEON: Kevin Young MD SHELLAC POLISHER: None. ANESTHESIA: General. OPERATIVE INDICATIONS: This is a 58-year-old female who was found to have obstructing approximately 4 mm distal left ureteral stone as well as bilateral non-obstructing kidney stones. She was brought to the operating room for treatment. DESCRIPTION OF PROCEDURE: The patient was brought to the operating room and general anesthesia was induced. Prophylactic antibiotics were infused. She was placed in the dorsal lithotomy position, prepped and draped in usual sterile fashion. A rigid cystoscope was inserted into the urethral meatus and advanced to the bladder. A guidewire was advanced up the left collecting system. I then went up the left collecting system with a short semi-rigid ureteroscope and in the distal ureter the 4 mm stone was seen. The stone was grasped with a basket and removed. I then advanced the ureteral access sheath up the left collecting system. I went up the access sheath with a flexible ureteroscope and examined all the calyces. There was an approximately 5 mm stone in the middle calyx. The stone was removed with basket. No other large stones were seen. All the other stones in kidney were tiny fragments that should be able to pass. A retrograde pyelogram was performed and notable for moderate left hydronephrosis with no extravasation. I then withdrew the ureteroscope along with the access sheath and no additional stones were seen. I then utilized the guidewire to advance a 6- Dutch x 22-32 cm JJ ureteral stent into the left collecting system. The wire was then removed and there were adequate curls of stent in left renal pelvis and in the bladder. I then advanced a guidewire up the right collecting system. I then advanced the ureteral access sheath up the right collecting system. Over the access sheath I passed flexible ureteroscope and examined the right kidney thoroughly. Within the lower pole calyx an approximately 8 mm size stone was seen. The stone was fragmented into smaller pieces using 272 micron laser fiber. All the fragments were then removed using basket. Once done I shot a retrograde pyelogram and was notable for mild right hydronephrosis with no extravasation. I then withdrew the ureteroscope along with access sheath and no additional stones were seen inside the ureter. I then utilized a guidewire to advance a 6-Dutch x 22-32 cm JJ ureteral stent into the right collecting system. The wire was removed and there were adequate curls of the stent in right renal pelvis and in the bladder. The bladder was emptied of all fluids and this marked the conclusion of the procedure. The patient was taken out of the dorsal lithotomy position, awakened from anesthesia and transported to recovery room in stable condition. ESTIMATED BLOOD LOSS: 5 mL. COMPLICATIONS: None. SPECIMENS: Kidney stone fragments. PLAN: The patient will follow up in urology clinic in a few weeks for stent removal. FELICIA
--- NOTE | 2019-12-10 10:19 | REP ---
RETROGRADE PYELOGRAM STUDY CLINICAL: Bilateral ureteral stent placement. TECHNIQUE: Intraoperative fluoroscopic imaging. FINDINGS: Multiple images demonstrate the patient to be status post bilateral ureteral stent placement. Mild grade 2 bilateral hydronephrosis noted without obvious nephrolithiasis. FLUROSCOPY TIME: 19 seconds. IMPRESSION: Satisfactory bilateral ureteral stent placement. MTDD
[2019-12-16 19:08] LABS: CA Oxalate Dihy 40 % (.); Ca Ox Monohydrate 55 % (.); Size 3x7 mm (.)
== END 2019-12-07 12:15 | disposition home or self-care (01) ==
LOC: M SDC 07:32
PROVIDERS: ATTEND Urology
DX: N20.2 Calculus of kidney with calculus of ureter (principal); I10 Essential (primary) hypertension; K58.8 Other irritable bowel syndrome; G47.33 Obstructive sleep apnea (adult) (pediatric); J45.909 Unspecified asthma, uncomplicated; L40.9 Psoriasis, unspecified; Z79.899 Other long term (current) drug therapy; F41.9 Anxiety disorder, unspecified; F32.9 Major depressive disorder, single episode, unspecified; Z88.0 Allergy status to penicillin; Z88.1 Allergy status to other antibiotic agents
CPT/HCPCS: 52356; 74420; 82365; 88300; C1769; C1894; C2617; J1100; J2250; J2405; J3010; Q9961

== ENCOUNTER → 2019-12-13 | Outpatient (REF) | payer OTHER ==
[~2019-12-13] MED LIST changes: -LIDOCAINE 1% MDV 20ML VIAL SQ PRN; -LR 1,000 ML IV ONE; -TRIMETHOPRIM/SULFAMETHOXAZOLE 160 MG in D5W 250 ML IV ONE
== END ==
LOC: M WUC 15:22
PROVIDERS: ATTEND Nurse Practitioner Family
DX: N39.0 Urinary tract infection, site not specified (principal)

== ENCOUNTER → 2020-06-20 | Outpatient (CLI) | payer OTHER ==
[~2020-06-20] MED LIST changes: -LISI-542 PO; +LISI-898 PO
--- NOTE | 2020-06-20 17:55 | REP ---
INDICATION: R HAND XRAY COMPARISON: None. TECHNIQUE: Four views right hand. FINDINGS: There is no evidence of acute fracture, or dislocation. There appears to be an old ulnar styloid fracture with 3 round, smoothly marginated ossific densities along the distal end of the ulna. There is moderate narrowing between the scaphoid and adjacent trapezium. The metacarpophalangeal joints are unremarkable. There is severe narrowing at the 2nd and 3rd distal interphalangeal joints with soft tissue swelling at those locations. There is also erosive change at the articular surfaces of these joints with subchondral cystic changes in the distal aspects of the middle phalanges. There is spurring at the margins of the joints. There is moderate narrowing of the 4th and 5th DIP joints. IMPRESSION: Old ulnar styloid fracture. 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 <Electronically signed by Garrett Zhang > 06/20/20 [id number]
== END ==
LOC: M RAD 16:34
PROVIDERS: ATTEND Nurse Practitioner Adult Health
DX: M25.541 Pain in joints of right hand (principal)

== ENCOUNTER → 2020-07-20 | Outpatient (CLI) | payer OTHER ==
[2020-07-20 15:44] LABS: BASO # 0.1 10^3/uL (0.0-0.2); BASO % 0.8 % (0.0-1.0); EOS # 0.1 10^3/uL (0.0-0.5); EOS % 1.8 % (0.0-3.0); HEMATOCRIT 44.9 % (36.0-47.0); LYMPH # 1.2 10^3/uL (1.5-5.0); LYMPH % 18.4 % (24.0-44.0); MEAN CORPUSCULAR HEMOGLOBIN 30.5 pg (27.0-33.0); MEAN CORPUSCULAR HGB CONC 33.4 g/dl (32.0-36.5); MEAN CORPUSCULAR VOLUME 91.4 fl (80.0-96.0); MONO # 0.6 10^3/uL (0.0-0.8); MONO % 9.4 % (2.0-8.0); NEUTROPHILS # 4.5 10^3/uL (1.5-8.5); NEUTROPHILS % 69.1 % (36.0-66.0); PLATELET COUNT, AUTOMATED 201 10^3/uL (150-450); RED BLOOD COUNT 4.91 10^6/uL (4.00-5.40); WHITE BLOOD COUNT 6.5 10^3/uL (4.0-10.0)
--- NOTE | 2020-07-20 16:11 | REP ---
INDICATION: OTHER PSORIASIS/LABS 1ST COMPARISON: None. TECHNIQUE: AP, lateral, bilateral oblique views left hand. FINDINGS: Moderate osteoarthritic degenerative changes noted throughout the hand and wrist along with focal advanced degenerative changes at the 2nd distal interphalangeal joint including marginal spurring, joint space narrowing and mild Gull wing deformity. Findings suggesting old ulnar styloid fracture and possible old scaphoid fracture. No significant evidence for inflammatory arthritidis. IMPRESSION: Osteoarthritic degenerative changes. <Electronically signed by David Chang > 07/20/20 [id number]
--- NOTE | 2020-07-20 16:12 | REP ---
INDICATION: OTHER PSORIASIS/LABS 1ST. COMPARISON: None. TECHNIQUE: AP, lateral, flexion/extension views of the cervical spine. FINDINGS: Generalized osteopenia. Advanced degenerative changes noted at C5-6, C6-7 and to a lesser extent C4-5. Findings include osteophytosis, endplate sclerosis, and disc space narrowing. Alignment and lordosis maintained. No acute fracture/compression injury or subluxation. Prevertebral soft tissues are normal. IMPRESSION: Osteopenia and advanced degenerative spondylosis. <Electronically signed by David Chang > 07/20/20 [id number]
[2020-07-20 16:13] LABS: ALBUMIN 4.1 GM/DL (3.2-5.2); ALT/SGPT 32 U/L (12-78); BILIRUBIN,TOTAL 0.6 MG/DL (0.2-1.0); BLOOD UREA NITROGEN 22 MG/DL (7-18); C REACTIVE PROTEIN QUANTITATIV 0.44 MG/DL (0.00-0.30); CALCIUM LEVEL 9.7 MG/DL (8.8-10.2); CARBON DIOXIDE LEVEL 32 MEQ/L (21-32); CHLORIDE LEVEL 103 MEQ/L (98-107); CREATININE FOR GFR 0.55 MG/DL (0.55-1.30); GLOMERULAR FILTRATION RATE > 60.0 (>45); GLUCOSE, FASTING 98 MG/DL (70-100); POTASSIUM SERUM 4.1 MEQ/L (3.5-5.1); RHEUMATOID FACTOR QUANT < 10.0 IU/ML (<15.0); SODIUM LEVEL 139 MEQ/L (136-145)
--- NOTE | 2020-07-20 16:14 | REP ---
INDICATION: OTHER PSORIASIS/LABS 1ST. COMPARISON: None. TECHNIQUE: Four views of the sacroiliac joints. FINDINGS: Osteopenia noted. Bilateral sacroiliac joints are symmetric and relatively age-appropriate. IMPRESSION: Age-appropriate examination of the sacroiliac joints. <Electronically signed by David Chang > 07/20/20 [id number]
--- NOTE | 2020-07-20 16:15 | REP ---
INDICATION: OTHER PSORIASIS/LABS 1ST COMPARISON: None. TECHNIQUE: AP, lateral, bilateral oblique views right and left foot. FINDINGS: Symmetric essentially age-related osteopenia and generalized degenerative changes are appreciated. No acute fracture or dislocation. Left foot demonstrates small calcaneal heel spur. IMPRESSION: Generalized and relatively symmetric osteopenia and age-related degenerative changes to the right and left foot. <Electronically signed by David Chang > 07/20/20 [id number]
[2020-07-20 16:17] LABS: ERYTHROCYTE SEDIMENTATION RATE 5 mm/hr (0-30)
--- NOTE | 2020-07-20 16:21 | REP ---
INDICATION: OTHER PSORIASIS/LABS 1ST COMPARISON: None. TECHNIQUE: AP, lateral, and swimmers views. FINDINGS: Age-related osteopenia. Alignment is maintained. No acute fracture/compression injury or subluxation. Age-related degenerative changes include marginal osteophytosis and minimal disc space narrowing. IMPRESSION: Age-related changes. <Electronically signed by David Chang > 07/20/20 [id number]
[2020-07-20 16:31] LABS: HEPATITIS B SURFACE ANTIGEN NEGATIVE (NEGATIVE)
--- NOTE | 2020-07-20 16:35 | REP ---
INDICATION: OTHER PSORIASIS COMPARISON: None. TECHNIQUE: AP, lateral, bilateral oblique, and coned-down views of the lumbar spine. FINDINGS: Generalized osteopenia noted. There is a mild compression deformity at L1 of indeterminate age but appears relatively similar to sagittal CT images dated 10/25/2019. Chronic grade 1 anterolisthesis at the L5-S1 level with associated endplate sclerosis, hypertrophic facet changes and disc space narrowing. Remainder of the examination demonstrates moderate multilevel degenerative changes. IMPRESSION: 1. Osteopenia and moderate multilevel degenerative changes as described above. 2. Presumed nonacute mild compression deformity at L1 appears similar to CT images dated . 3. Chronic anterolisthesis at the L5-S1 level. <Electronically signed by David Chang > 07/20/20 [id number]
== END ==
LOC: M LAB 14:57
PROVIDERS: ATTEND Internal Medicine Rheumatology
DX: L40.8 Other psoriasis (principal); M15.4 Erosive (osteo)arthritis; M85.9 Disorder of bone density and structure, unspecified

== ENCOUNTER → 2020-07-20 | Outpatient (CLI) | payer OTHER ==
--- NOTE | 2020-07-20 18:33 | REP ---
INDICATION: EROSIVE (OSTO) ARTHRITIS / PSORIASIS. COMPARISON: Comparison right hand radiographs are from June 20, 2020.. TECHNIQUE: Axial, coronal, and sagittal images of the right hand are acquired with T1 and T2 weighted scans obtained with without fat saturation. FINDINGS: There is a nonunited old ulnar styloid fracture as seen on radiographs. There is mild osteoarthritic spurring at the 1st carpometacarpal articulation. There is navicular 0 multangular joint space narrowing and subtle edema in the distal navicula. There are scattered tiny subcortical cysts in the distal and of the navicula as well as at the 2nd carpometacarpal articulation. No definite erosive changes seen. There is fluid in the dorsal extensor tendons mild in degree. There is hypertrophy and low signal intensity consistent with sclerosis at the DIP joints of the index and long finger corresponding with the changes seen radiographically these 2 joints. No other at arose of changes seen. IMPRESSION: There is some fluid in the dorsal extensor tendons over the mid metacarpals. Osteoarthritic changes are noted at the 1st carpometacarpal and 2nd carpometacarpal articulation. There are erosive and osteoarthritic changes at the index and long finger DIP as seen radiographically. <Electronically signed by Xavier Garcia > 07/20/20 [id number]
== END ==
LOC: M PLARAD 13:11
PROVIDERS: ATTEND Internal Medicine Rheumatology
DX: M15.4 Erosive (osteo)arthritis (principal); L40.8 Other psoriasis

== ENCOUNTER → 2020-10-17 | Outpatient (CLI) | payer OTHER ==
[~2020-10-17] MED LIST changes: +ERGO500029; -VITA50005
--- NOTE | 2020-10-17 15:49 | REP ---
INDICATION: LEFT HIP PAIN COMPARISON: None. TECHNIQUE: AP and frog-lateral views of the left hip FINDINGS: Osseous structures, joint spaces, and surrounding soft tissues are age-appropriate. No overt arthritic changes are appreciated. No evidence for acute or healed injury. IMPRESSION: Age-appropriate left hip radiographs. <Electronically signed by David Chang > 10/17/20 [id number]
== END ==
LOC: M RAD 14:27
PROVIDERS: ATTEND Nurse Practitioner Adult Health
DX: M25.552 Pain in left hip (principal)

== ENCOUNTER → 2020-12-19 | Outpatient (REF) | payer OTHER ==
[2020-12-19 17:10] LABS: BASO # 0.1 10^3/uL (0.0-0.2); BASO % 0.8 % (0.0-1.0); EOS # 0.1 10^3/uL (0.0-0.5); EOS % 1.2 % (0.0-3.0); HEMATOCRIT 42.8 % (36.0-47.0); HEMOGLOBIN 14.7 g/dl (12.0-15.5); LYMPH # 1.5 10^3/uL (1.5-5.0); LYMPH % 17.7 % (24.0-44.0); MEAN CORPUSCULAR HEMOGLOBIN 31.5 pg (27.0-33.0); MEAN CORPUSCULAR HGB CONC 34.3 g/dl (32.0-36.5); MEAN CORPUSCULAR VOLUME 91.8 fl (80.0-96.0); MONO # 0.7 10^3/uL (0.0-0.8); NEUTROPHILS # 6.2 10^3/uL (1.5-8.5); NEUTROPHILS % 71.7 % (36.0-66.0); PLATELET COUNT, AUTOMATED 232 10^3/uL (150-450); RED BLOOD COUNT 4.66 10^6/uL (4.00-5.40); WHITE BLOOD COUNT 8.6 10^3/uL (4.0-10.0)
[2020-12-19 18:15] LABS: ALBUMIN 4.2 GM/DL (3.2-5.2); ALT/SGPT 36 U/L (12-78); BILIRUBIN,DIRECT 0.1 MG/DL (0.0-0.2); BILIRUBIN,TOTAL 0.4 MG/DL (0.2-1.0); BLOOD UREA NITROGEN 18 MG/DL (7-18); CALCIUM LEVEL 9.8 MG/DL (8.8-10.2); CARBON DIOXIDE LEVEL 30 MEQ/L (21-32); CHLORIDE LEVEL 103 MEQ/L (98-107); CREATININE FOR GFR 0.59 MG/DL (0.55-1.30); GLOMERULAR FILTRATION RATE > 60.0 (>45); GLUCOSE, FASTING 98 MG/DL (70-100); POTASSIUM SERUM 4.4 MEQ/L (3.5-5.1); SODIUM LEVEL 138 MEQ/L (136-145); TOTAL PROTEIN 6.7 GM/DL (6.4-8.2)
[2020-12-19 18:19] LABS: ERYTHROCYTE SEDIMENTATION RATE 5 mm/hr (0-30)
== END ==
LOC: M SFHCRHEU 15:16
PROVIDERS: ATTEND Internal Medicine Rheumatology
DX: M15.4 Erosive (osteo)arthritis (principal)

== ENCOUNTER → 2021-05-01 | Outpatient (CLI) | payer OTHER ==
[~2021-05-01] MED LIST changes: -LISI-898 PO; +LISI5TAB11 PO; +OMEP-173 PO; -OMEP-218 PO
== END ==
LOC: M RAD 14:21
PROVIDERS: ATTEND Internal Medicine Rheumatology
DX: L40.8 Other psoriasis (principal)

== ENCOUNTER → 2021-05-05 | Outpatient (CLI) | payer OTHER | LOC: M WUC 11:49 | PROVIDERS: ATTEND Nurse Practitioner Adult Health | DX: R93.89 Abnormal findings on diagnostic imaging of other specified body structures (principal) ==

== ENCOUNTER → 2021-06-14 | Outpatient (CLI) | payer OTHER ==
[~2021-06-14] MED LIST changes: +PROHANCE 279.3MG/ML 15ML VIAL As Ordered ONE; +PROHANCE 279.3MG/ML 5ML VIAL As Ordered ONE
== END ==
LOC: M RAD 15:18
PROVIDERS: ATTEND Nurse Practitioner Adult Health
DX: R93.89 Abnormal findings on diagnostic imaging of other specified body structures (principal)

== ENCOUNTER → 2021-10-20 | Outpatient (REF) | payer OTHER ==
[~2021-10-20] MED LIST changes: +ALBU2.5V10 INH; -ALBU83IN INH; -PROHANCE 279.3MG/ML 15ML VIAL As Ordered ONE; -PROHANCE 279.3MG/ML 5ML VIAL As Ordered ONE
[2021-10-20 16:48] LABS: BASO # 0.1 10^3/uL (0.0-0.2); EOS # 0.2 10^3/uL (0.0-0.5); EOS % 2.1 % (0.0-3.0); HEMATOCRIT 42.5 % (36.0-47.0); HEMOGLOBIN 14.8 g/dl (12.0-15.5); LYMPH # 1.2 10^3/uL (1.5-5.0); LYMPH % 16.5 % (24.0-44.0); MEAN CORPUSCULAR HEMOGLOBIN 32.1 pg (27.0-33.0); MEAN CORPUSCULAR HGB CONC 34.8 g/dl (32.0-36.5); MEAN CORPUSCULAR VOLUME 92.2 fl (80.0-96.0); MONO # 0.5 10^3/uL (0.0-0.8); MONO % 7.1 % (2.0-8.0); NEUTROPHILS # 5.2 10^3/uL (1.5-8.5); NEUTROPHILS % 72.7 % (36.0-66.0); PLATELET COUNT, AUTOMATED 196 10^3/uL (150-450); RED BLOOD COUNT 4.61 10^6/uL (4.00-5.40); WHITE BLOOD COUNT 7.1 10^3/uL (4.0-10.0)
[2021-10-20 17:39] LABS: ALBUMIN 4.1 GM/DL (3.2-5.2); ALT/SGPT 29 U/L (12-78); BILIRUBIN,TOTAL 0.5 MG/DL (0.2-1.0); BLOOD UREA NITROGEN 20 MG/DL (7-18); C REACTIVE PROTEIN QUANTITATIV 0.44 MG/DL (0.00-0.30); CALCIUM LEVEL 9.2 MG/DL (8.8-10.2); CARBON DIOXIDE LEVEL 25 MEQ/L (21-32); CHLORIDE LEVEL 105 MEQ/L (98-107); CREATININE FOR GFR 0.52 MG/DL (0.55-1.30); GLOMERULAR FILTRATION RATE > 60.0 (>45); GLUCOSE, FASTING 136 MG/DL (70-100); POTASSIUM SERUM 3.9 MEQ/L (3.5-5.1); SODIUM LEVEL 137 MEQ/L (136-145); TOTAL PROTEIN 6.4 GM/DL (6.4-8.2)
[2021-10-20 18:54] LABS: ERYTHROCYTE SEDIMENTATION RATE 7 mm/hr (0-30)
== END ==
LOC: M SFHCRHEU 10:57
PROVIDERS: ATTEND Internal Medicine Rheumatology
DX: L40.8 Other psoriasis (principal); M15.4 Erosive (osteo)arthritis; Z79.899 Other long term (current) drug therapy; M85.89 Other specified disorders of bone density and structure, multiple sites

== ENCOUNTER → 2022-02-09 | Outpatient (REF) | payer OTHER | LOC: M LAB REF 16:50 | PROVIDERS: ATTEND Nurse Practitioner Adult Health | DX: M25.50 Pain in unspecified joint (principal) ==

== ENCOUNTER → 2022-02-22 | Outpatient (REF) | payer OTHER ==
[2022-02-22 11:56] LABS: BASO # 0.1 10^3/uL (0.0-0.2); EOS # 0.1 10^3/uL (0.0-0.5); EOS % 2.4 % (0.0-3.0); HEMOGLOBIN 14.7 g/dl (12.0-15.5); LYMPH # 1.1 10^3/uL (1.5-5.0); LYMPH % 18.8 % (24.0-44.0); MEAN CORPUSCULAR HEMOGLOBIN 31.1 pg (27.0-33.0); MEAN CORPUSCULAR HGB CONC 34.2 g/dl (32.0-36.5); MEAN CORPUSCULAR VOLUME 90.9 fl (80.0-96.0); MONO # 0.4 10^3/uL (0.0-0.8); MONO % 7.5 % (2.0-8.0); NEUTROPHILS # 4.1 10^3/uL (1.5-8.5); NEUTROPHILS % 69.8 % (36.0-66.0); PLATELET COUNT, AUTOMATED 195 10^3/uL (150-450); RED BLOOD COUNT 4.73 10^6/uL (4.00-5.40); WHITE BLOOD COUNT 5.9 10^3/uL (4.0-10.0)
[2022-02-22 12:21] LABS: ERYTHROCYTE SEDIMENTATION RATE 8 mm/hr (0-30)
[2022-02-22 12:23] LABS: ALBUMIN 3.8 G/DL (3.2-5.2); ALKALINE PHOSPHATASE 90 U/L (46-116); ALT/SGPT 30 U/L (7.0-40); AST/SGOT 19 U/L (<34); BILIRUBIN,TOTAL 0.5 MG/DL (0.3-1.2); BLOOD UREA NITROGEN 16 MG/DL (9-23); CALCIUM LEVEL 8.7 MG/DL (8.3-10.6); CARBON DIOXIDE LEVEL 27 MMOL/L (20-31); CHLORIDE LEVEL 105 MMOL/L (98-107); CREATININE FOR GFR 0.51 MG/DL (0.55-1.30); GLOMERULAR FILTRATION RATE > 60.0 (>45); GLUCOSE, FASTING 123 MG/DL (74-106); POTASSIUM SERUM 4.5 MMOL/L (3.5-5.1); SODIUM LEVEL 140 MMOL/L (136-145); TOTAL PROTEIN 6.3 G/DL (5.7-8.2)
== END ==
LOC: M SFHCRHEU 09:59
PROVIDERS: ATTEND Internal Medicine Rheumatology
DX: L40.8 Other psoriasis (principal); M15.4 Erosive (osteo)arthritis; Z79.899 Other long term (current) drug therapy; M85.89 Other specified disorders of bone density and structure, multiple sites

== ENCOUNTER → 2022-05-18 | Outpatient (CLI) | payer OTHER | LOC: M RAD 15:29 | PROVIDERS: ATTEND Internal Medicine Rheumatology | DX: M54.2 Cervicalgia (principal); L40.8 Other psoriasis; Z79.899 Other long term (current) drug therapy; M85.89 Other specified disorders of bone density and structure, multiple sites; M15.4 Erosive (osteo)arthritis ==

== ENCOUNTER 2022-05-27 16:30 | Observation (INO) | payer OTHER ==
[~2022-05-27] VITALS: Ht 172.7 cm; Wt 105.6 kg
[~2022-05-27 16:30] MED LIST changes: -ERGO500029; +ERGO500029 PO
[2022-05-27] MEDS ORDERED: DOXY-444 PO (16:42)
[2022-05-27] MEDS ORDERED: KETOROLAC 30 MG/ML 1ML VIAL IV ONE (17:15)
[2022-05-27] MEDS ORDERED: NS 1,000 ML IV ONE (17:15)
[2022-05-27 17:25] LABS: BASO # 0.1 10^3/uL (0.0-0.2); BASO % 0.8 % (0.0-1.0); EOS # 0.1 10^3/uL (0.0-0.5); EOS % 1.4 % (0.0-3.0); HEMATOCRIT 44.7 % (36.0-47.0); LYMPH # 1.8 10^3/uL (1.5-5.0); MEAN CORPUSCULAR HEMOGLOBIN 30.6 pg (27.0-33.0); MEAN CORPUSCULAR HGB CONC 33.6 g/dl (32.0-36.5); MEAN CORPUSCULAR VOLUME 91.2 fl (80.0-96.0); MONO # 0.6 10^3/uL (0.0-0.8); MONO % 7.4 % (2.0-8.0); NEUTROPHILS % 68.9 % (36.0-66.0); PLATELET COUNT, AUTOMATED 258 10^3/uL (150-450); WHITE BLOOD COUNT 8.7 10^3/uL (4.0-10.0)
[2022-05-27 17:27] LABS: APPEARANCE, URINE HAZY (CLEAR); BACTERIA, URINE AUTO NEGATIVE (NEGATIVE); BILIRUBIN, URINE AUTO NEGATIVE (NEGATIVE); BLOOD, URINE BLOOD 3+ (NEGATIVE); COLOR, URINE YELLOW (YELLOW); GLUCOSE, URINE (UA) AUTO NEGATIVE (NEGATIVE); KETONE, URINE AUTO TRACE mg/dL (NEGATIVE); LEUKOCYTE ESTERASE, URINE AUTO NEGATIVE (NEGATIVE); NITRITE, URINE AUTO NEGATIVE (NEGATIVE); PROTEIN, URINE AUTO 1+ mg/dL (NEGATIVE); RBC, URINE AUTO TNTC /HPF (0-3); SPECIFIC GRAVITY URINE AUTO 1.028 (1.002-1.035); SQUAMOUS EPITHELIAL CELL UR AU 1 /HPF (0-6); UROBILINOGEN, URINE AUTO 0.2 mg/dL (0.0-2.0); WBC, URINE AUTO 4 /HPF (0-3)
[2022-05-27 17:52] LABS: ALBUMIN 4.2 G/DL (3.2-5.2); BILIRUBIN,DIRECT 0.1 MG/DL (<0.4); BILIRUBIN,TOTAL 0.5 MG/DL (0.3-1.2); TOTAL PROTEIN 6.7 G/DL (5.7-8.2)
[2022-05-27] MEDS ORDERED: MORPHINE 4 MG/ML 1ML VIAL IV ONE (18:35)
[2022-05-27] MEDS ORDERED: GLYCOPYRROLATE INJ 0.2 MG/ML 2 ML VIAL As Ordered ONE (19:08)
[2022-05-27] MEDS ORDERED: propofoL 200 MG/20 ML VIAL As Ordered ONE (19:08)
[2022-05-27] MEDS ORDERED: ONDANSETRON 4MG 2ML VIAL As Ordered ONE (19:08)
[2022-05-27] MEDS ORDERED: MIDAZOLAM INJ 2MG/2ML VIAL As Ordered ONE (19:09)
[2022-05-27] MEDS ORDERED: fentaNYL 100 MCG/2 ML INJECTION As Ordered ONE (19:09)
[2022-05-27] MEDS ORDERED: ONDANSETRON 4MG 2ML VIAL IV PRN (19:30)
[2022-05-27] MEDS ORDERED: fentaNYL 100 MCG/2 ML INJECTION IV PRN (19:30)
[2022-05-27] MEDS ORDERED: oxyCODONE 5MG TAB PO PRN (19:30)
[2022-05-27] MEDS ORDERED: MEPERIDINE 25 MG/ML 1ML VIAL IV PRN (19:30)
[2022-05-27] MEDS ORDERED: ISOVUE-300 61% 100ML VIAL As Ordered ONE (19:35)
[2022-05-27] MEDS ORDERED: cefTRIAXone SOD 1GM VIAL As Ordered ONE (20:04)
[2022-05-27] MEDS ORDERED: HOME MED LIST COMPLETE! XX SCH (20:20)
[2022-05-27] MEDS ORDERED: INSULIN LISPRO (NovoLOG) PER UNIT SC SCH (21:00)
[2022-05-27] MEDS ORDERED: MOM 30ML SUSPENSION UDC PO PRN (21:35)
[2022-05-27] MEDS ORDERED: ALBUTEROL SULFATE 2.5MG/0.5ML INH NEB SOLN INH ONE (21:45)
[2022-05-27] MEDS ORDERED: GLUCOSE 4GM CHEW TABLET PO PRN (21:55)
[2022-05-27] MEDS ORDERED: GLUCAGON INJ 1MG VIAL SC PRN (21:55)
[2022-05-27] MEDS ORDERED: DEXTROSE 50% 50ML SYRINGE IV PRN (21:55)
[2022-05-27] MEDS: NS 1,000 ML IV SCH (21:55)
[2022-05-27 22:04] VITALS: BP 170/138
[2022-05-27] MEDS ORDERED: EXCEDRIN MIGRAINE TABLET PO PRN (23:05)
[2022-05-27] MEDS ORDERED: lisinopriL 5 MG TAB PO ONE (23:10)
[2022-05-27] MEDS ORDERED: hydroCHLOROthiazide 12.5 MG CAPSULE PO ONE (23:10)
[2022-05-28] MEDS ORDERED: FOSFOMYCIN TROMETHAMINE 3 GM POWDER PACKET (MONUROL) PO ONE
[2022-05-28 00:37] VITALS: BP 170/81
[2022-05-28] MEDS ORDERED: guaiFENesin 200 MG TAB PO PRN (00:55)
[2022-05-28] MEDS ORDERED: CHLORASEPTIC SPRAY MT PRN (00:55)
[2022-05-28] MEDS: DOXYCYCLINE HYCLATE 100MG TABLET PO SCH ×2 (01:04→09:21)
[2022-05-28 06:00] VITALS: BP 138/70
[2022-05-28 06:02] LABS: HEMATOCRIT 40.1 % (36.0-47.0); HEMOGLOBIN 13.8 g/dl (12.0-15.5); MEAN CORPUSCULAR HEMOGLOBIN 31.5 pg (27.0-33.0); MEAN CORPUSCULAR HGB CONC 34.4 g/dl (32.0-36.5); MEAN CORPUSCULAR VOLUME 91.6 fl (80.0-96.0); PLATELET COUNT, AUTOMATED 211 10^3/uL (150-450); RED BLOOD COUNT 4.38 10^6/uL (4.00-5.40); WHITE BLOOD COUNT 9.6 10^3/uL (4.0-10.0)
[2022-05-28 06:33] LABS: BLOOD UREA NITROGEN 13 MG/DL (9-23); CALCIUM LEVEL 8.4 MG/DL (8.3-10.6); CARBON DIOXIDE LEVEL 25 MMOL/L (20-31); CHLORIDE LEVEL 105 MMOL/L (98-107); CREATININE FOR GFR 0.48 MG/DL (0.55-1.30); GLOMERULAR FILTRATION RATE > 60.0 (>45); GLUCOSE, FASTING 213 MG/DL (74-106); POTASSIUM SERUM 4.3 MMOL/L (3.5-5.1); SODIUM LEVEL 137 MMOL/L (136-145)
[2022-05-28] MEDS ORDERED: INSULIN LISPRO (NovoLOG) PER UNIT SC SCH (07:30)
[2022-05-28] MEDS ORDERED: FLUT44IN INH (08:49)
[2022-05-28] MEDS ORDERED: ALBU6.7H6 INH (08:49)
[2022-05-28] MEDS ORDERED: OXYC1TAB23 PO (08:49)
[2022-05-28] MEDS ORDERED: MONT10TA97 PO (08:49)
[2022-05-28] MEDS ORDERED: HEPARIN SOD (PORCINE) 5000UNITS/ML 1ML VIAL/SYRINGE SC SCH (09:00)
[2022-05-28] MEDS ORDERED: hydroCHLOROthiazide 12.5 MG CAPSULE PO SCH (09:00)
[2022-05-28] MEDS ORDERED: CitaloPRAM (CeleXA) 20 MG TAB PO SCH (09:00)
[2022-05-28] MEDS ORDERED: OMEPRAZOLE 20MG CAP PO SCH (09:00)
[2022-05-28 09:04] LABS: THYROXINE (T4) 7.7 UG/DL (4.5-10.9)
[2022-05-28 09:05] LABS: FREE THYROXINE INDEX 2.8 % (1.3-4.8); T UPTAKE 36.8 % (22.5-37.0); THYROID STIMULATING HORMONE 0.357 uIU/ML (0.55-4.78)
[2022-05-28] MEDS: NS 1,000 ML IV SCH (10:03)
[2022-05-28] MEDS ORDERED: MONTELUKAST 10 MG TAB PO SCH (10:15)
[2022-05-28] MEDS ORDERED: FLUTICASONE HFA 110MCG 12GM INHALER (FLOVENT) INH SCH (10:15)
[2022-05-28] MEDS ORDERED: IPRATROPIUM 0.5MG/ALBUTEROL 2.5MG INH SOL UD 3ML (DUONEB) NEB PRN (10:15)
[2022-05-28] MEDS ORDERED: ALCOPAD25 TOP (10:48)
[2022-05-28] MEDS ORDERED: LANC30MI XX (10:48)
[2022-05-28] MEDS ORDERED: GLUC1TES2 XX (10:48)
[2022-05-28] MEDS ORDERED: BLOOKIT21 XX (10:48)
[2022-05-28] MEDS ORDERED: IPRATROPIUM 0.5MG/ALBUTEROL 2.5MG INH SOL UD 3ML (DUONEB) NEB SCH (12:00)
[2022-05-28 12:13] LABS: HEMOGLOBIN A1c 5.4 % (4.0-6.0)
[2022-05-28 14:00] VITALS: BP 138/69
== END 2022-05-28 15:23 | disposition home or self-care (01) ==
LOC: M ED 16:30 → M ED INP 16:31 → M ED 20:09 → M MSPAV 22:04
PROVIDERS: ADMIT Family Medicine; ATTEND General Practice
DX: N13.2 Hydronephrosis with renal and ureteral calculous obstruction (principal); N39.0 Urinary tract infection, site not specified; J45.909 Unspecified asthma, uncomplicated; I10 Essential (primary) hypertension; G47.33 Obstructive sleep apnea (adult) (pediatric); E04.2 Nontoxic multinodular goiter; Z79.51 Long term (current) use of inhaled steroids; Z79.899 Other long term (current) drug therapy; E66.9 Obesity, unspecified; K75.81 Nonalcoholic steatohepatitis (NASH); Z88.0 Allergy status to penicillin; Z88.1 Allergy status to other antibiotic agents
CPT/HCPCS: 36415; 52332; 71045; 74176; 74420; 76536; 80047; 80048; 80076; 81001; 83036; 83690; 84436; 84443; 84479; 85025; 85027; 87086; 87635; 94640; 96361; 96374; 96375; 99284; C1769; C2617; J0696; J1100; J1885; J2250; J2405; J3010; Q9967

== ENCOUNTER → 2022-06-06 | Outpatient (REF) | payer OTHER ==
[~2022-06-06] MED LIST changes: +ALBU6.7H6 INH; +ALCOPAD25 TOP; +BLOOKIT21 XX; +DOXY-444 PO; +FLUT44IN INH; +GLUC1TES2 XX; +LANC30MI XX; +MONT10TA97 PO; +OXYC1TAB23 PO
== END ==
LOC: M LAB REF 12:35
PROVIDERS: ATTEND Nurse Practitioner Adult Health
DX: E06.9 Thyroiditis, unspecified (principal)

== ENCOUNTER → 2022-06-12 | Outpatient (CLI) | payer OTHER | LOC: M EKG 15:22 | PROVIDERS: ATTEND Urology | DX: N20.0 Calculus of kidney (principal) ==

== ENCOUNTER → 2022-06-14 | Outpatient (CLI) | payer OTHER | LOC: M RAD 12:13 | PROVIDERS: ATTEND General Practice | DX: E04.2 Nontoxic multinodular goiter (principal) | CPT/HCPCS: 78012; A9516 ==

== ENCOUNTER 2022-06-18 07:49 | Day surgery (SDC) | payer OTHER ==
[~2022-06-18] VITALS: Ht 172.7 cm; Wt 103.6 kg
[~2022-06-18 07:49] MED LIST changes: +ceFAZolin SOD 2 GM in IV 1 EA IV ONE
[2022-06-18] MEDS ORDERED: ONDANSETRON 4MG 2ML VIAL As Ordered ONE (08:09)
[2022-06-18] MEDS ORDERED: MIDAZOLAM INJ 2MG/2ML VIAL As Ordered ONE (08:09)
[2022-06-18] MEDS ORDERED: propofoL 200 MG/20 ML VIAL As Ordered ONE (08:09)
[2022-06-18] MEDS ORDERED: LIDOCAINE 2% 100MG/5ML SDV (FOR ANES.) As Ordered ONE (08:09)
[2022-06-18] MEDS ORDERED: fentaNYL 100 MCG/2 ML INJECTION As Ordered ONE (08:10)
[2022-06-18] MEDS ORDERED: LR 1,000 ML IV SCH ×2 (08:15→10:25)
[2022-06-18] MEDS ORDERED: SEVOFLURANE INHAL SOLN 250 ML BTL As Ordered ONE (09:03)
[2022-06-18] MEDS ORDERED: ISOVUE-300 61% 100ML VIAL As Ordered ONE (09:26)
[2022-06-18] MEDS ORDERED: ACETAMINOPHEN 1000MG 100ML IV BAG As Ordered ONE (09:48)
[2022-06-18] MEDS ORDERED: ONDANSETRON 4MG 2ML VIAL IV PRN (10:25)
[2022-06-18] MEDS ORDERED: fentaNYL 100 MCG/2 ML INJECTION IV PRN (10:25)
[2022-06-18] MEDS ORDERED: HYDROMORPHONE HCL 0.5 MG/ 0.5 ML SYRINGE IV PRN (10:25)
[2022-06-18] MEDS: oxyCODONE 5MG TAB PO PRN ×2 (10:37→11:15)
[2022-06-18] MEDS ORDERED: OXYB5TAB10 PO (10:44)
[2022-06-18 12:30] VITALS: BP 163/85
== END 2022-06-18 12:46 | disposition home or self-care (01) ==
LOC: M SDC 07:49
PROVIDERS: ATTEND Urology
DX: N20.1 Calculus of ureter (principal); I10 Essential (primary) hypertension; K58.9 Irritable bowel syndrome, unspecified; K21.9 Gastro-esophageal reflux disease without esophagitis; Z86.718 Personal history of other venous thrombosis and embolism; M19.90 Unspecified osteoarthritis, unspecified site; L40.9 Psoriasis, unspecified; F32.A Depression, unspecified; J45.909 Unspecified asthma, uncomplicated; G47.30 Sleep apnea, unspecified; Z88.0 Allergy status to penicillin; Z88.1 Allergy status to other antibiotic agents; Z79.899 Other long term (current) drug therapy; Z79.51 Long term (current) use of inhaled steroids
CPT/HCPCS: 52332; 52352; 74420; 82365; C1769; C1894; C2617; J0131; J0690; J1100; J2250; J2405; J3010; Q9967

== ENCOUNTER → 2022-06-26 | Outpatient (REF) | payer OTHER ==
[~2022-06-26] MED LIST changes: -ceFAZolin SOD 2 GM in IV 1 EA IV ONE
== END ==
LOC: M LAB REF 08:14
PROVIDERS: ATTEND Internal Medicine Endocrinology, Diabetes & Metabolism
DX: E04.1 Nontoxic single thyroid nodule (principal); E04.2 Nontoxic multinodular goiter

== ENCOUNTER 2022-10-11 08:19 | Day surgery (SDC) | payer OTHER ==
[~2022-10-11] VITALS: Ht 172.7 cm; Wt 105.5 kg
[~2022-10-11 08:19] MED LIST changes: +ALEN1TAB PO; +NS 1,000 ML IV ONE
[2022-10-11] MEDS ORDERED: propofoL 200 MG/20 ML VIAL As Ordered ONE ×2 (10:10→10:11)
[2022-10-11] MEDS ORDERED: fentaNYL 100 MCG/2 ML INJECTION As Ordered ONE (10:10)
[2022-10-11] MEDS ORDERED: LIDOCAINE 2% MDV 20ML VIAL As Ordered ONE (10:10)
[2022-10-11 10:24] VITALS: TEMP 97.5
[2022-10-11 10:33] VITALS: BP 123/56; O2SAT 96
== END 2022-10-11 10:33 | disposition home or self-care (01) ==
LOC: M OPP 08:19
PROVIDERS: ATTEND Surgery
DX: Z12.11 Encounter for screening for malignant neoplasm of colon (principal); Z86.010 Personal history of colon polyps; Z79.899 Other long term (current) drug therapy; Z88.1 Allergy status to other antibiotic agents
CPT/HCPCS: 45378; J3010

== ENCOUNTER → 2022-12-21 | Outpatient (REF) | payer OTHER ==
[~2022-12-21] MED LIST changes: -NS 1,000 ML IV ONE; -OXYB5TAB10 PO; +OXYB5TAB11 PO
[2022-12-21 18:59] LABS: RSV AMPLIFICATION NEGATIVE (NEGATIVE)
== END ==
LOC: M LAB REF 18:08
PROVIDERS: ATTEND Physician Assistant
DX: J06.9 Acute upper respiratory infection, unspecified (principal); R05.9 Cough, unspecified; Z20.828 Contact with and (suspected) exposure to other viral communicable diseases

== ENCOUNTER → 2024-02-04 | Outpatient (CLI) | payer OTHER ==
[~2024-02-04] MED LIST changes: +DOXY-440 PO; -DOXY-444 PO; -OXYB5TAB11 PO; +OXYB5TAB14 PO
== END ==
LOC: M RAD 15:25
PROVIDERS: ATTEND Internal Medicine Pulmonary Disease
DX: J01.80 Other acute sinusitis (principal)

== ENCOUNTER → 2024-04-14 | Outpatient (REF) | payer OTHER | LOC: M LAB REF 12:05 | PROVIDERS: ATTEND Nurse Practitioner Adult Health | DX: Z79.899 Other long term (current) drug therapy (principal) ==

== ENCOUNTER → 2025-01-01 | Outpatient (REF) | payer MEDICARE, OTHER ==
[~2025-01-01] MED LIST changes: -FLOM0.4C39 PO; -IBUP-1022 PO; +IBUP600T42 PO; +TAMS-18 PO
[2025-01-01 13:58] LABS: APPEARANCE, URINE CLEAR (CLEAR); BACTERIA, URINE AUTO NEGATIVE (NEGATIVE); BILIRUBIN, URINE AUTO NEGATIVE (NEGATIVE); BLOOD, URINE BLOOD NEGATIVE (NEGATIVE); GLUCOSE, URINE (UA) AUTO NEGATIVE (NEGATIVE); KETONE, URINE AUTO NEGATIVE (NEGATIVE); LEUKOCYTE ESTERASE, URINE AUTO NEGATIVE (NEGATIVE); MUCUS, URINE SMALL (NEGATIVE); NITRITE, URINE AUTO NEGATIVE (NEGATIVE); PROTEIN, URINE AUTO NEGATIVE (NEGATIVE); RBC, URINE AUTO 1 /HPF (0-3); SPECIFIC GRAVITY URINE AUTO 1.017 (1.002-1.035); SQUAMOUS EPITHELIAL CELL UR AU 0 /HPF (0-6); UROBILINOGEN, URINE AUTO 0.2 mg/dL (0.0-2.0); WBC, URINE AUTO 2 /HPF (0-3)
== END ==
LOC: M SMT 12:50
PROVIDERS: ATTEND Nurse Practitioner Family
DX: Z87.440 Personal history of urinary (tract) infections (principal); N20.0 Calculus of kidney